=== PATIENT | female | born 1945 | race Hispanic/Latino ===

== ENCOUNTER 2017-03-08 16:44 | Emergency (ER) | payer OTHER ==
[~2017-03-08 16:44] MED LIST: NAPROSYN375 MG PO
--- NOTE | 2017-03-08 17:15 | ED MVC/FALL/TRAUMA COMPLAINT ---
History of Present Illness General Chief Complaint: Fall Stated Complaint: PT WAS DIZZY AND FELL Source: patient, family Exam Limitations: language barrier Vital Signs & Intake/Output Vital Signs & Intake/Output Vital Signs Date Time Temp Pulse Resp B/P B/P Pulse O2 O2 Flow FiO2 Mean Ox Delivery Rate 03/08 1658 98.6 90 15 174/79 96 Room Air Room Air Allergies Coded Allergies: Penicillins (RASH 03/08/17) diazepam (RASH 03/08/17) Reconcile Medications Cholecalciferol (Vitamin D3) (Vitamin D) 10,000 UNIT CAPSULE 1 CAP PO QMON SUPPLEMENT (Reported) Gabapentin 300 MG CAPSULE 1 CAP PO BID NERVE PAIN (Reported) Insulin Detemir (Levemir Flextouch) 100 UNIT/ML (3 ML) INSULN.PEN 15 UNITS SC QAM DM (Reported) Insulin Detemir (Levemir) 100 UNIT/ML VIAL 25 UNITS SC QPM DM (Reported) Lidocaine 5 % ADH..PATCH 1 PAT TOP DAILY PAIN (Reported) Lisinopril 20 MG TABLET 1 TAB PO DAILY BP (Reported) Metoclopramide HCl (Reglan) 10 MG TABLET 1 TAB PO TID PRN N/V (Reported) 30 minutes before meals and bedtime Pantoprazole Sodium 40 MG TABLET.DR 1 TAB PO DAILY GI (Reported) Simvastatin (Simvastatin*) 40 MG TABLET 1 TAB PO QPM CHOLESTEROL (Reported) Sitagliptin Phos/Metformin HCl (Janumet 50-500 MG Tablet) 50 MG-500 MG TABLET 1 TAB PO BID DM (Reported) Triage Note: 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 PER PT'S CAREGIVER SHE GOT DIZZY AND THEN FELL. UNWITNESSED. UNSURE IF ON BLOOD THINNERS. PT DID HIT HER HEAD, HEMATOMA TO LEFT EYE, NO CHANGE IN VISION. -LOC. CURRENTLY FEELS DIZZY. L LEG PAIN. Triage Nurses Notes Reviewed? yes Onset: Abrupt Duration: hour(s): (1) Timing: single episode today Severity: mild, moderate Injuries/Fall Location: head Method of Injury: fall Loss of Consciousness: no loss of consciousness No Modifying Factors: none Associated Symptoms: left eye pain HPI: This is a 71-year-old female who presents with family members after fall at home. According to the doorkeeper she was walking and suddenly became dizzy and fell. Patient hit the left side of her head on the ground. No loss of consciousness. She was immediately able to stand up. She did not have any chest pain or shortness of breath prior to the fall. She complains of pain around her left orbit and left ear at this time. No ringing in the ears. Denies any history of same. She was eating and drinking normally stay but the house was very warm. Denies any urinary symptoms abdominal symptoms. Patient is a sla-zfwdnkp-jrxesjbfa diabetic. Blood sugar in the ED is over 300. Past History Travel History Traveled to [place] past 21 day No Medical History Any Pertinent Medical History? see below for history Neurological: NONE EENT: NONE Cardiovascular: hypertension Respiratory: NONE Gastrointestinal: NONE Hepatic: NONE Renal: NONE Musculoskeletal: NONE Psychiatric: NONE Endocrine: DIABETES TYPE II Blood Disorders: NONE Cancer(s): BREAST CANCER Surgical History Surgical History: non-contributory Psychosocial History What is your primary language [place] Tobacco Use: Never used Family History Hx Contributory? No Review of Systems Review of Systems Constitutional: Denies: chills, fever. Eyes: Reports: pain. Denies: blindness, blurred vision, decreased acuity. Ears, Nose, Throat, Mouth: Reports: ear pain. Denies: ear discharge. Respiratory: Denies: cough, short of breath. Cardiovascular: Denies: chest pain. Gastrointestinal/Abdominal: Denies: abdominal pain. Genitourinary: Reports: no symptoms. Musculoskeletal: Reports: no symptoms. Skin: Reports: no symptoms. Neurological/Psychological: Reports: headache. Denies: ataxia, confusion. All Other Systems: Reviewed and Negative Physical Exam Physical Exam General Appearance: well developed/nourished, alert, awake, anxious, mild distress, moderate distress Head: LEFT PERIORBITAL CONTUSION, ABRASION, TENDER OVER LEFT INFRAORBITAL RIM Eyes: Bilateral: PERRL, EOMI, other (LEFT CATARACT SURGERY). Ears, Nose, Throat, Mouth: hearing grossly normal, moist mucous membrane Neck: normal inspection, supple, full range of motion Respiratory: normal breath sounds, chest non-tender, no respiratory distress Cardiovascular: regular rate/rhythm Peripheral Pulses: 2+ radial (R), 2+ radial (L) Gastrointestinal: soft, non-tender Extremities: normal range of motion, pelvis stable Neurologic/Psych: no motor/sensory deficits, awake, alert, oriented x 3 Skin: intact, normal color, warm/dry Core Measures ACS in differential dx? No Severe Sepsis Present: No Septic Shock Present: No Progress Differential Diagnosis: ORBITAL FRACTURE, ICH, CERVICAL FRACTURE, HIP FX, MAYITO, DEHYDARTION,ACS, UTI, VERTIGO, CVA, TIA Plan of Care: Orders Procedure Date/time Status GLYCOSYLATED HGB 03/08 1735 Active MISTAKE 03/08 1734 Active URINALYSIS 03/08 1734 Complete TROPONIN LEVEL 03/08 1734 Complete PARTIAL THROMBOPLASTIN TIME 03/08 1734 Complete PROTHROMBIN TIME 03/08 1734 Complete COMPREHENSIVE METABOLIC PANEL 03/08 1734 Complete CBC WITHOUT DIFFERENTIAL 03/08 1734 Complete EKG 03/08 1646 Active Laboratory Tests 03/08/17 1800: Urine Color YEL, Urine Clarity CLEAR, Urine pH 5.5, Ur Specific Rush 1.020, Urine Protein TRACE H, Urine Ketones NEG, Urine Nitrite NEG, Urine Bilirubin NEG, Urine Urobilinogen 0.2, Ur Leukocyte Esterase NEG, Ur Microscopic SEDIMENT EXAMINED, Urine WBC RARE, Ur Epithelial Cells RARE, Urine Bacteria FEW H, Urine Hemoglobin NEG, Urine Glucose 500 H 03/08/17 1755: Hemoglobin A1c Pending 03/08/17 1755: Anion Gap 12, Estimated GFR 49 L, BUN/Creatinine Ratio 27.3 H, Glucose 417 H, Calcium 9.8, Total Bilirubin 0.8, AST 27, ALT 42, Alkaline Phosphatase 107, Troponin I < 0.01, Total Protein 7.0, Albumin 4.1, Globulin 2.9, Albumin/ Globulin Ratio 1.4, PT 10.9, INR 1.04, APTT 28, CBC w Diff NO MAN DIFF REQ, RBC 3.81 L, MCV 90.1, MCH 30.6, RDW 12.9, MPV 8.4, Gran % 72.1, Lymphocytes % 18.9 L, Monocytes % 6.5, Eosinophils % 2.0, Basophils % 0.5, Absolute Granulocytes 5.3, Absolute Lymphocytes 1.4, Absolute Monocytes 0.5, Absolute Eosinophils 0.1, Absolute Basophils 0, PUBS MCHC 33.9 PATIENT FEELING MUCH BETTER AFTER IV FLUDIS AND TYLEONOL. IMAGING NEGATIVE. INSULIN GIVENFOR HYPERGLYCEMIA. PATIETN FEELS BETTER AND WANTS TO GO HOME. (MATT TERAN,IRAM) Diagnostic Imaging: Viewed by Me: Radiology Read, CT Scan. Discussed w/RAD: Radiology Read, CT Scan. Radiology Impression: PATIENT: RAFI CASTRO PRESENT AGE: 71 PATIENT ACCOUNT NO: [id number] : 46 LOCATION: [facility] ORDERING PHYSICIAN: IRAM GUTIERREZ MD SERVICE DATE: 03/08/17 EXAM TYPE: CAT - CT CERV SPINE WO IV CONTRAST; CT HEAD WO IV CONTRAST EXAMINATION: CT HEAD WITHOUT CONTRAST CT CERVICAL SPINE WITHOUT CONTRAST CLINICAL INFORMATION: Fall. Left facial contusion COMPARISON: Cervical spine 10/31/2015 TECHNIQUE: Imaging was performed from the skull base to vertex without intravenous administration of contrast. In addition, helical noncontrast CT imaging was acquired through the cervical spine and source images were reviewed along with axial reconstructions and sagittal and coronal MPRs. FINDINGS: HEAD: No intracranial mass, hemorrhage, or midline shift is visualized. There is atrophy with prominence of the ventricles and the sulci and hypodensity of the periventricular white matter due to chronic small vessel ischemic disease. There is vascular calcifications of the internal carotid arteries bilaterally. No extra-axial collections are identified. The paranasal sinuses and mastoid air cells are well aerated. CERVICAL SPINE: There is no evidence of acute cervical spine fracture. There is degenerative spondylosis of spine. Disc height narrowing with endplate spurs of the vertebrae C5-C6 and C6-C7. No pre- or paravertebral soft tissue abnormality is identified. Limited assessment of the lung apices is unremarkable. IMPRESSION: 1. No acute intracranial pathology. 2. No CT evidence of acute cervical spine fracture or traumatic subluxation. Degenerative disease of cervical spine. DICTATED BY: ANNABELLA ROBERTSON MD DATE/TIME DICTATED:03/08/171818 BAKERY PASTRY INTER[place] DATE/TIME TRANSCRIBED:1818 CONFIDENTIAL, DO NOT COPY WITHOUT APPROPRIATE AUTHORIZATION. < Electronically signed in Other Vendor System> SIGNED BY: ANNABELLA ROBERTSON MD 183, PATIENT: RAFI CASTRO PRESENT AGE: 71 PATIENT ACCOUNT NO: [id number] : 46 LOCATION: [facility] ORDERING PHYSICIAN: IRAM GUTIERREZ MD SERVICE DATE: 03/08/17 EXAM TYPE: CAT - CT MAXILLOFACIAL W/O CON EXAMINATION: CT MAXILLOFACIAL WITHOUT CONTRAST CLINICAL INFORMATION: Trauma after a fall. Pain at the left orbit. COMPARISON: None TECHNIQUE: Multidetector helical imaging was performed in the axial plane with generation of coronal and sagittal reformatted images. FINDINGS: Soft tissue edema over the left orbit superiorly. There is no fracture of orbits. The orbital globes and retrobulbar are structures are unremarkable. Paranasal sinuses are normally aerated. Mandible and TMJ joint intact. IMPRESSION: Normal CT of the facial bones. Soft tissue swelling over the superior left orbit DICTATED BY: ANNABELLA ROBERTSON MD DATE/TIME DICTATED:03/08/171826 BAKERY PASTRY INTER[place] :[place] DATE/TIME TRANSCRIBED:03/08/171826 CONFIDENTIAL, DO NOT COPY WITHOUT APPROPRIATE AUTHORIZATION. <Electronically signed in Other Vendor System> SIGNED BY: ANNABELLA ROBERTSON MD 03/08/171833 Initial ED EKG: NSR (R), RAD Comments: PATIENT: RAFI CASTRO PRESENT AGE: 71 PATIENT ACCOUNT NO: [id number] : 46 LOCATION: [facility] ORDERING PHYSICIAN: IRAM GUTIERREZ MD SERVICE DATE: 03/08/17 EXAM TYPE: RAD - XRY-HIP 2-3 VIEWS, LEFT EXAMINATION: XR HIP, LEFT CLINICAL INFORMATION: Left hip pain following fall. COMPARISON: None. TECHNIQUE: Single AP view of the pelvis as well as AP and frog-leg lateral views of the left hip. FINDINGS: No grossly displaced pelvic fractures. The iliopectineal and ilioischial lines are intact and there is no diastases of the bilateral sacroiliac joints or pubic symphysis. The sacral arcuate lines appear to be grossly intact. There are moderate to severe degenerative changes involving the lower lumbosacral spine. No acute fracture or dislocation of the left hip is identified. IMPRESSION: No visible fracture or dislocation of the left hip. No grossly displaced pelvic fractures. DICTATED BY: WENDY CASIANO MD DATE/TIME DICTATED:03/08/171825 BAKERY PASTRY INTERNSHIP:[place] DATE/TIME TRANSCRIBED:03/08/171825 CONFIDENTIAL, DO NOT COPY WITHOUT APPROPRIATE AUTHORIZATION. <Electronically signed in Other Vendor System> SIGNED BY: WENDY CASIANO MD 03/08/171838 Departure Departure Time of Disposition: 2112 Disposition: HOME OR SELF CARE Condition: Stable Clinical Impression Primary Impression: Dehydration Secondary Impressions: Hyperglycemia, Orbital contusion Referrals: NIKOLAY KILPATRICK MD (PCP/Family) Additional Instructions: Take Tylenol as needed for pain. Apply ice to the affected area. Please drink plenty of fluids. Monitor blood sugar today and tomorrow as discussed. Follow up with your doctor in the office, return as needed. Departure Forms: Customer Survey General Discharge Information
[2017-03-08 18:27] LABS: ABSOLUTE BASOPHIL COUNT 0 /CUMM (0.0-0.2); ABSOLUTE EOSINOPHIL COUNT 0.1 /CUMM (0.0-0.7); ABSOLUTE GRANULOCYTE CT 5.3 /CUMM (1.4-6.5); ABSOLUTE LYMPH COUNT 1.4 /CUMM (1.2-3.4); ABSOLUTE MONOCYTE COUNT 0.5 /CUMM (0.10-0.60); BASOPHIL % 0.5 % (0.0-2.0); GRANULOCYTE % 72.1 % (42.2-75.2); HEMATOCRIT 34.3 % (37-47); MEAN CORPUSCULAR HGB 30.6 PG (27.0-31.0); MEAN CORPUSCULAR HGB CONC 33.9 G/DL (33.0-37.0); MEAN CORPUSCULAR VOLUME 90.1 FL (81.0-99.0); MEAN PLATELET VOLUME 8.4 FL (7.4-10.4); PLATELET COUNT 249 /CUMM (130-400); RBC DISTRIBUTION WIDTH 12.9 % (11.5-14.5); RED BLOOD CELL CT 3.81 /CUMM (4.20-5.40); WHITE BLOOD CELL COUNT 7.4 /CUMM (4.8-10.8)
--- NOTE | 2017-03-08 18:31 | CT SCAN REPORT ---
EXAMINATION: CT HEAD WITHOUT CONTRAST CT CERVICAL SPINE WITHOUT CONTRAST CLINICAL INFORMATION: Fall. Left facial contusion COMPARISON: Cervical spine 10/31/2015 TECHNIQUE: Imaging was performed from the skull base to vertex without intravenous administration of contrast. In addition, helical noncontrast CT imaging was acquired through the cervical spine and source images were reviewed along with axial reconstructions and sagittal and coronal MPRs. FINDINGS: HEAD: No intracranial mass, hemorrhage, or midline shift is visualized. There is atrophy with prominence of the ventricles and the sulci and hypodensity of the periventricular white matter due to chronic small vessel ischemic disease. There is vascular calcifications of the internal carotid arteries bilaterally. No extra-axial collections are identified. The paranasal sinuses and mastoid air cells are well aerated. CERVICAL SPINE: There is no evidence of acute cervical spine fracture. There is degenerative spondylosis of spine. Disc height narrowing with endplate spurs of the vertebrae C5-C6 and C6-C7. No pre- or paravertebral soft tissue abnormality is identified. Limited assessment of the lung apices is unremarkable. IMPRESSION: 1. No acute intracranial pathology. 2. No CT evidence of acute cervical spine fracture or traumatic subluxation. Degenerative disease of cervical spine.
[2017-03-08 18:32] LABS: PT 10.9 SEC (9.4-12.5); PTT 28 SEC (25-37)
--- NOTE | 2017-03-08 18:34 | CT SCAN REPORT ---
EXAMINATION: CT MAXILLOFACIAL WITHOUT CONTRAST CLINICAL INFORMATION: Trauma after a fall. Pain at the left orbit. COMPARISON: None TECHNIQUE: Multidetector helical imaging was performed in the axial plane with generation of coronal and sagittal reformatted images. FINDINGS: Soft tissue edema over the left orbit superiorly. There is no fracture of orbits. The orbital globes and retrobulbar are structures are unremarkable. Paranasal sinuses are normally aerated. Mandible and TMJ joint intact. IMPRESSION: Normal CT of the facial bones. Soft tissue swelling over the superior left orbit
--- NOTE | 2017-03-08 18:39 | RADIOLOGY REPORT ---
EXAMINATION: XR HIP, LEFT CLINICAL INFORMATION: Left hip pain following fall. COMPARISON: None. TECHNIQUE: Single AP view of the pelvis as well as AP and frog-leg lateral views of the left hip. FINDINGS: No grossly displaced pelvic fractures. The iliopectineal and ilioischial lines are intact and there is no diastases of the bilateral sacroiliac joints or pubic symphysis. The sacral arcuate lines appear to be grossly intact. There are moderate to severe degenerative changes involving the lower lumbosacral spine. No acute fracture or dislocation of the left hip is identified. IMPRESSION: No visible fracture or dislocation of the left hip. No grossly displaced pelvic fractures.
[2017-03-08] MEDS ORDERED: PANTOPRAZOLE SO40 M1 PO (19:04)
[2017-03-08] MEDS ORDERED: GABAPENTIN300 M2 PO (19:05)
[2017-03-08] MEDS ORDERED: LIDOCAINE1 EACH TOP (19:05)
[2017-03-08] MEDS ORDERED: REGLAN10 M1 PO (19:07)
[2017-03-08] MEDS ORDERED: LEVEMIR FL100 UNIT/1 SC (19:07)
[2017-03-08] MEDS ORDERED: LEVEMIR100 UNIT/1 SC (19:08)
[2017-03-08] MEDS ORDERED: JANUMET 50-5001 EACH PO (19:08)
[2017-03-08] MEDS ORDERED: LISINOPRIL20 M1 PO (19:09)
[2017-03-08] MEDS ORDERED: SIMVASTATIN40 M1 PO (19:09)
[2017-03-08] MEDS ORDERED: VITAMIN D10000 UNIT PO (19:11)
[2017-03-08 21:20] VITALS: BP 164/81
== END 2017-03-08 21:40 ==
LOC: ERH 16:44
PROVIDERS: Emergency Medicine
DX: S05.12XA Contusion of eyeball and orbital tissues, left eye, initial encounter (principal); E86.0 Dehydration; E11.65 Type 2 diabetes mellitus with hyperglycemia; W19.XXXA Unspecified fall, initial encounter; Y93.9 Activity, unspecified; Y92.9 Unspecified place or not applicable
CPT/HCPCS: 73502-LT; 81001; 93005; 93010; 96365; 96372; J0131; J1815